=== PATIENT | male | born 1960 | race Caucasian/White ===

== ENCOUNTER 2022-06-01 12:45 | Emergency (ER) | payer OTHER, BC, SELFPAY ==
[2022-06-01] VITALS (31 sets, daily range): BP systolic 101–124; BP diastolic 54–73; PULSE 75–106; RESP 16–30; TEMP 36.6–38.7; O2SAT 66–100
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
--- NOTE | 2022-06-01 12:58 | ECG_ITS ---
Measurements Intervals [place] Rate: 77 P: 61 DC: 166 QRS: 12 QRSD: 88 T: 31 QT: 374 QTc: 425 Interpretive Statements SINUS RHYTHM NONSPECIFIC T-WAVE ABNORMALITY ABNORMAL ECG NO PREVIOUS ECG AVAILABLE FOR COMPARISON Electronically Signed On 06-01-2022 13:39:18 CDT by Jose Guillory M.D.
[2022-06-01 13:23] LABS: Glucose Point of Care 138 mg/dl (65-105)
[2022-06-01] MEDS: TETANUS,DIPHTHERIA,AC PERTUSSIS ADULT (0.5 ML) BOOSTRIX IM (13:28)
[2022-06-01] MEDS: SODIUM CHLORIDE 0.9% IV 1,000 ML 999 ML IV CONT (13:29)
--- NOTE | 2022-06-01 13:34 | PC.NURSE ---
Nurse to nurse report given to CAMI Fry, at [facility].
[2022-06-01 13:35] LABS: Basophils Absolute Auto 0.1 K/mm3 (0.0-0.1); Basophils Percent Auto 0.4 % (0.2-1.2); Eosinophils Absolute Auto 0.2 K/mm3 (0-0.3); Eosinophils Percent Auto 1.2 % (0-4.4); Hematocrit 27.6 % (42.0-52.0); Hemoglobin 7.6 g/dL (14.0-18.0); Immature Granulocyte Absolute 0.12 K/mm3 (0.00-0.031); Immature Granulocyte Percent A 0.8 % (0-0.5); Lymphocytes Absolute Auto 1.48 K/mm3 (0.9-3.2); Mean Corpuscular HGB Conc 27.5 g/dl (32-36); Mean Corpuscular Hemoglobin 18.4 pg (26-34); Mean Corpuscular Volume 66.8 fl (80-100); Mean Platelet Volume 9.3 fl (7.4-10.4); Monocytes Absolute Auto 0.9 K/mm3 (0.1-0.6); Monocytes Percent Auto 5.8 % (2.6-8.5); Neutrophils Percent Auto 81.8 % (45.5-73.1); Platelet Count Result 529 k/mm3 (150-375); Red Blood Count 4.13 M/mm3 (4.6-6.20); Red Cell Distribution Width 20.3 % (11.5-14.5); White Blood Count 14.7 K/mm3 (4.5-10.0)
[2022-06-01 13:47] LABS: INR 1.2; Prothrombin Time 14.7 Seconds (11.1-14.7)
[2022-06-01 13:48] LABS: Alanine Aminotransferase 16 U/L (6-50); Alkaline Phosphatase 68 U/L (38-126); Anion Gap 8 mmol/L (8-16); Aspartate Amino Transferase 28 U/L (17-59); Bilirubin,Total 0.6 mg/dL (0.2-1.3); Blood Urea Nitrogen 24 mg/dL (9-20); Calcium 8.5 mg/dL (8.4-10.2); Carbon Dioxide 25 mmol/L (22-30); Chloride 104 mmol/L (98-107); Estimated CRCL calculation 34 ml/min; Estimated Glomerular Filt Rate 32; Glucose 130 mg/dL (65-110); Partial Thromboplastin Time 24.8 SECONDS (22.3-36.8); Potassium 4.2 mmol/L (3.4-5.0); Sodium 137 mmol/L (137-145)
[2022-06-01 13:57] LABS: Anisocytosis 1+ (NORMAL); Platelet Estimate Increased (Adequate)
[2022-06-01 13:58] LABS: Hypochromasia 1+ (NORMAL); Ovalocytes 1+ (NORMAL); Schistocytes None Seen (NORMAL)
[2022-06-01 14:00] LABS: Troponin I < 0.012 ng/mL (0.000-0.034)
--- NOTE | 2022-06-01 14:20 | PC.NURSE ---
Patient verbalized to this RN that it was ok to give his employer updates.
[2022-06-01 14:45] LABS: Influenza A QL RT-PCR Negative (Negative); Influenza B QL RT-PCR Negative (Negative); SARS-CoV-2 RNA PCR Negative (Negative)
[2022-06-01 15:39] LABS: Alveolar/Arterial O2 Gradient 47.3 mmHg; Base Excess ABG -4.3 mEq/l (+/-2.0); Carboxyhemoglobin 1.6 % THb (0-2.0); Fractional Inspired Oxygen 21 %; HCO3 ABG 18.9 mEq/l (22.0-26.0); Oxygen Saturation ABG 95.2 % (95.0-100.0); Oxyhemoglobin 91.8 % THb (90.0-100.0); PCO2 ABG 27.2 mmHg (35.0-45.0); PO2 ABG 69.9 mmHg (80.0-100.0); PO2 FiO2 Ratio Arterial Blood 3.33 %; Reduced Hemoglobin 6.6 %THb (0-5.0)
[2022-06-01 15:40] LABS: Device ROOM AIR; Modified Allen's Test Pass; Site Drawn RIGHT RADIAL; Total Hemoglobin 7.7 g/dL (12.0-18.0)
--- NOTE | 2022-06-01 15:42 | PC.NURSE ---
EDP aware of fever of 101.5 orally. EDP ok with patient receiving blood. VORB for tylenol.
[2022-06-01 16:51] LABS: Folic Acid 7.3 ng/mL (2.76->20)
[2022-06-01 16:53] LABS: Iron < 10 ug/dL (49-181)
[2022-06-01 17:28] LABS: Ferritin 9.51 ng/mL (11.1-264)
[2022-06-01 17:35] LABS: Appearance Urine Clear (Clear); Bilirubin Urine Negative (Negative); Blood Urine Negative (Negative); Color Urine Yellow (Yellow); Glucose Urine UA Negative (Negative); Ketones Urine Negative (Negative); Leukocyte Esterase Ur Negative LEU/UL (Negative); Nitrate Urine Negative (Negative); Protein Urine Negative (Negative); Specific Grav Ur 1.019 (1.001-1.035)
[2022-06-01 17:39] LABS: Percent Iron Saturation < 3 % (20-50)
[2022-06-01 17:52] LABS: Add Urine Microscopic? NO
[2022-06-01 18:33] LABS: Troponin I < 0.012 ng/mL (0.000-0.034)
== END 2022-06-01 17:55 | disposition short-term general hospital (02) ==
PROVIDERS: Emergency Provider Emergency Medicine
DX: S01.512A Laceration without foreign body of oral cavity, initial encounter (principal); S01.511A Laceration without foreign body of lip, initial encounter; S27.321A Contusion of lung, unilateral, initial encounter; D64.9 Anemia, unspecified; R55 Syncope and collapse; Z23 Encounter for immunization; Z20.822 Contact with and (suspected) exposure to COVID-19; N18.9 Chronic kidney disease, unspecified; Z87.891 Personal history of nicotine dependence; K44.9 Diaphragmatic hernia without obstruction or gangrene; R94.31 Abnormal electrocardiogram [ECG] [EKG]; M47.812 Spondylosis without myelopathy or radiculopathy, cervical region; M47.816 Spondylosis without myelopathy or radiculopathy, lumbar region; M47.814 Spondylosis without myelopathy or radiculopathy, thoracic region; V67.5XXA Driver of heavy transport vehicle injured in collision with fixed or stationary object in traffic accident, initial encounter
CPT/HCPCS: 36415; 36430; 36600; 70450; 70486; 71260; 72125; 72129; 72132; 74177; 80053; 81003; 82375; 82607; 82728; 82746; 82805; 82948; 83050; 83540; 83550; 83605; 84484; 85025; 85610; 85730; 86850; 86900; 86901; 86923; 87040; 87077; 87636; 90471; 90715; 93005; 96361; 96365; 99285; J0131; J7030; J7050; P9016; Q9967